=== PATIENT | male | born 1975 | race Caucasian/White ===

== ENCOUNTER 2017-05-01 17:08 | Observation (INO) | payer SELFPAY ==
--- NOTE | 2017-05-01 17:13 | ED Physician Documentation ---
General Adult - HISTORIAN Historian: patient - HPI Stated Complaint: possible alcohol withdrawal Chief Complaint: General Adult Onset: hours Timing: still present Severity: moderate Further Comments: yes (Pt is a 41 yo male from [facility]. He has been drinking alcohol regularly since he was a teenager and has been a daily drinker for the past 2 months, a fifth of hard liquor/day. 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.) - ROS CONST: other (shaky) EYES/ENT: none CVS/RESP: none GI/: nausea MS/SKIN/LYMPH: none NEURO/PSYCH: anxiety - PAST HX Past History: other (alcohol abuse) Other History: none Allergies/Adverse Reactions: Allergies Allergy/AdvReac Type Severity Reaction Status Date / Time No Known Allergies Allergy Verified 05/01/17 17:26 Home Medications: Ambulatory Orders Medication Instructions Recorded NK [NK] 05/01/17 - SOCIAL HX Smoking History: non-smoker Alcohol Use: heavy Drug Use: none - FAMILY HX Family History: No - REVIEWED ASSESSMENTS Nursing Assessment Reviewed: Yes Vitals Reviewed: Yes Progress - Progress Progress: banana bag IVF Ativan 2 mg IV improved admit to OBS, ER physician. General Adult Physical Exam - PHYSICAL EXAM GENERAL APPEARANCE: moderate distress EENT: eye inspection normal, ENT inspection normal, pharynx normal, dry mucous membranes NECK: normal inspection, supple RESPIRATORY: no resp distress, chest non-tender, breath sounds normal CVS: reg rate & rhythm, heart sounds normal ABDOMEN: soft, no organomegaly, normal bowel sounds BACK: normal inspection, no CVA tenderness SKIN: warm/dry, normal color EXTREMITIES: non-tender, normal range of motion, no evidence of injury NEURO: oriented X3, motor nml, sensation nml, other (tremor) Discharge Clincal Impression: Alcohol withdrawal Qualifiers: Complication of substance-induced condition: uncomplicated Qualified Code(s): F10.230 - Alcohol dependence with withdrawal, uncomplicated Condition: Stable Disposition: ADMITTED INPATIENT Decision to Admit: [id number] Decision Time: 19:08
[2017-05-01] MEDS ORDERED: 0.9 % SODIUM CHLORIDE 1,000 ML IV ONE ×2 (17:18→20:16)
[2017-05-01] MEDS ORDERED: FOLIC ACID 5 MG/1 ML ONE (17:19)
[2017-05-01] MEDS ORDERED: MVI, ADULT NO.1 WITH VIT K 10 ML VIAL IV ONE (17:19)
[2017-05-01] MEDS ORDERED: THIAMINE HCL 100 MG/ML 2ML VIAL ONE (17:19)
[2017-05-01] MEDS ORDERED: LORazepam 2 MG/ML VIAL IVP ONE (17:20)
[2017-05-01 17:34] LABS: BASOPHILS % 0.6 (0.0-1.5); EOSINOPHILS % 0.7 % (0.0-6.8); MEAN CORPUSCULAR HEMOGLOBIN 36.6 pg (28.0-34.0); MONOCYTES % 9.8 % (0.0-11.0); NEUTROPHILS # 3.8 # k/uL (1.4-7.7)
[2017-05-01 17:49] LABS: eGFR (African) > 60; eGFR (Non-African) > 60
[2017-05-01] MEDS ORDERED: THIAMINE HCL 100 MG, MVI, ADULT NO.1 WITH VIT K 10 ML, FOLIC ACID 5 MG in 0.9 % SODIUM ... IV SCH ×4 (18:00)
[2017-05-01] MEDS: LORazepam 2 MG/ML VIAL IVP PRN (21:13)
[2017-05-01] MEDS: 0.9 % SODIUM CHLORIDE 1,000 ML IV SCH (21:14)
[2017-05-01 21:19] VITALS: BMI 22.2
[2017-05-02] MEDS ORDERED: 0.9 % SODIUM CHLORIDE 1,000 ML IV ONE (05:53)
[2017-05-02] MEDS ORDERED: LORazepam 2 MG/ML VIAL ONE (05:53)
[2017-05-02] MEDS: LORazepam 2 MG/ML VIAL IVP PRN (05:58)
[2017-05-02] MEDS: 0.9 % SODIUM CHLORIDE 1,000 ML IV SCH (05:58)
[2017-05-02 06:23] VITALS: BP 149/80
--- NOTE | 2017-05-02 07:19 | Inpatient Progress Note ---
Subjective - Required Recertification Statement I anticipate X number of days because-include discharge plan: 1 day (overnight) for alcohol withdrawal - Review of Systems Neurological: Other (Tremor, ETOH withdrawal) Objective - Exam Vitals and I&O: Vital Signs Temp 96.6 F L 05/02/17 06:00 Pulse 74 05/02/17 06:00 Resp 18 05/02/17 06:00 BP 149/80 05/02/17 06:00 Pulse Ox 92 05/02/17 06:00 Intake & Output 05/01/17 05/01/17 05/02/17 11:59 23:59 11:59 Intake Total 1100 Output Total 600 Balance 500 Weight 74.389 kg Intake: IV 1100 Right Antecubital 1100 Output: Urine 600 Other: Voiding Method Urinal General: Alert, Oriented to Person, Oriented to Place, Oriented to Time HEENT: Atraumatic, PERRLA Neck: Supple Lungs: Clear to auscultation, Normal air movement, Speaks full Sentences Cardiovascular: Regular rate, No murmurs Abdomen: Normal bowel sounds, Soft, No tenderness Skin: Normal, Warm Neurological: Normal gait, Normal speech, Other (ETOH withdrawal, tremor) Psych/Mental Status: Mental status NL, Intact Judgment - Results Results: Laboratory Results WBC 6.50 K/ul (4.00-12.00) 05/01/17 17:28 RBC 4.31 M/ul (3.90-5.20) 05/01/17 17:28 Hgb 15.8 g/dL (12.0-18.0) 05/01/17 17:28 Hct 46.5 % (37.0-53.0) 05/01/17 17:28 MCV 108.0 fl (80.0-100.0) H 05/01/17 17:28 MCH 36.6 pg (28.0-34.0) H 05/01/17 17:28 MCHC 33.9 g/dL (30.0-36.0) 05/01/17 17:28 RDW 14.6 % (11.3-14.3) H 05/01/17 17:28 Plt Count 116 K/mm3 (130-400) L 05/01/17 17:28 Neut % (Auto) 58.1 % (39.0-79.0) 05/01/17 17:28 Lymph % (Auto) 28.7 % (16.0-50.0) 05/01/17 17: [place] % (Auto) 9.8 % (0.0-11.0) 05/01/17 17: Eos % (Auto) 0.7 % (0.0-6.8) 05/01/17 17:28 Baso % (Auto) 0.6 (0.0-1.5) 05/01/17 17: Neut # (Auto) 3.8 # k/uL (1.4-7.7) 05/01/17 17: Lymph # (Auto) 1.9 # k/uL (0.6-4.0) 05/01/17: [place] # (Auto) 0.6 # k/uL (0.0-0.9) 05/01/17 17: Eos # (Auto) 0.0 # k/uL (0.0-0.6) 05/01/17 17: Baso # (Auto) 0.0 # k/uL (0.0-0.5) 05/01/17 17: Reactive Lymphs % 2.1 % (0.0-5.0) 05/01/17 17: Reactive Lymphs # 0.1 # k/uL (0.0-0.8) 05/01/17 17:28 Sodium 134 mmol/L (136-145) L 05/01/17 17:30 Potassium 3.6 mmol/L (3.5-5.1) 05/01/17 17:30 Chloride 93 mmol/L (98-107) L 05/01/17 17:30 Carbon Dioxide 28 mmol/L (22-30) 05/01/17 17:30 BUN 10 mg/dL (9-20) 05/01/17 17:30 Creatinine 0.70 mg/dL (0.66-1.25) 05/01/17 17:30 Estimated Creat Clear 144 05/01/17 17:30 Est GFR ( Amer) > 60 (60-) 05/01/17 17:30 Est GFR (Non-Af Amer) > 60 (60-) 05/01/17 17:30 Glucose 131 mg/dL (74-106) H 05/01/17 17:30 Calcium 9.5 mg/dL (8.4-10.2) 05/01/17 17:30 Total Bilirubin 1.6 mg/dL (0.2-1.3) H 05/01/17 17:30 AST 101 U/L (15-46) H 05/01/17 17:30 ALT 51 U/L (13-69) 05/01/17 17:30 Alkaline Phosphatase 62 U/L (38-126) 05/01/17 17:30 Total Protein 8.0 g/dL (6.3-8.2) 05/01/17 17:30 Albumin 4.6 g/dL (3.5-5.0) 05/01/17 17:30 - Procedures Procedures: Pt received Ativan 2 mg IV x 2 overnight for control of tremor due to ETOH with drawal. Pt doing well this am. May be discharged to [facility] with continuation of Ativan today and tomorrow and then taper to d/c. Assessment/Plan - Assessment/Plan (1) Alcohol withdrawal Status: Acute Current Visit: Yes Qualifiers: Complication of substance-induced condition: uncomplicated Qualified Code(s ): F10.230 - Alcohol dependence with withdrawal, uncomplicated
--- NOTE | 2017-05-02 07:27 | Discharge Summary ---
Discharge Summary - Discharge Sumary History of Present Illness: Pt is a 41 yo alcoholic, drinking a fifth of hard liquor per day, who was admitted to [facility] rehab yesterday and had stopped drinking the day before. Pt developed significant tremor due to ETOH withdrawal and was sent to ER. Pt was given a banana bag and ativan 2 mg in ER with much improvement in tremor and was admitted overnight. IVF NS @ 100 cc/hr was continued overnight and pt was given 2 additional doses of ativan 2 mg IV. Pt is doing well this am , and may return to [facility] after breakfast. Ativan 1-2 mg po q4hrs prn may be continued today and tomorrow and then tapered over the next two days Condition at Discharge: Stable Home Medications: Ambulatory Orders Medication Instructions Recorded NK [NK] 05/01/17 Consultations this Visit: None Procedures this Visit: None Allergies/Adverse Reactions: Allergies Allergy/AdvReac Type Severity Reaction Status Date / Time No Known Allergies Allergy Verified 05/01/17 17:26 Patient Problems: Current Active Problems Problem Status Onset Alcohol withdrawal Acute
== END 2017-05-02 09:50 | disposition home or self-care (01) ==
LOC: ED 17:08 → SOUTH 18:30
PROVIDERS: ADMIT Emergency Medicine; ATTEND Emergency Medicine
DX: F10.230 Alcohol dependence with withdrawal, uncomplicated (principal)
CPT/HCPCS: 80053; 80320; 85025; 96360; 96361; 96365; 96376; 99283; 99284; G0378; J2060; J3411; J3490; J7030; 99217; 99218; 99224; G0480; S1016

== ENCOUNTER 2018-03-17 21:56 | Emergency (ER) | payer SELFPAY ==
--- NOTE | 2018-03-17 22:10 | ED Physician Documentation ---
General Adult - HISTORIAN Historian: patient - HPI Stated Complaint: alcohol intoxication Chief Complaint: General Adult Onset: other (he started drinking heavy in August ) Timing: still present, worse Severity: moderate Further Comments: yes (He went to [facility] in Apr and started to drink again in August. He has been drinking up to a gallon a day - vodka. He did drink today and had a 5th of vodka on way to [place]. He denies any pain.) Last known Well Code/Unknown Code: Unknown - ROS CONST: no problems EYES/ENT: none CVS/RESP: none GI/: none MS/SKIN/LYMPH: none NEURO/PSYCH: denies: headache, dizziness - PAST HX Past History: hypertension (does not take meds has not for 2 years ), other (alcoholism ) Surgeries/Procedures: other (chest tube 3 years ago ) Allergies/Adverse Reactions: Allergies Allergy/AdvReac Type Severity Reaction Status Date / Time No Known Allergies Allergy Verified 03/17/18 22:49 Home Medications: Ambulatory Orders Medication Instructions Recorded NK 05/01/17 - SOCIAL HX Smoking History: non-smoker Alcohol Use: heavy - FAMILY HX Family History: No - VITAL SIGNS Vital Signs: Vital Signs Temp Pulse Resp BP Pulse Ox 149/80 05/02/17 06:00 - REVIEWED ASSESSMENTS Nursing Assessment Reviewed: Yes Vitals Reviewed: Yes Progress - Progress Progress: 2345: Discussed case with Nila at [facility] - she states they are on a medical bed hold and she suggests calling [facility]. DG [id number]: Discussed case with [employer] business performance advisor and she states she will discuss admission with aeronautical research engineer return call DG [id number]: discussed case with sisters they are aware and will await word on accepting for transfer DG [id number]: discussed care with Dr Polo and he will accept DG General Adult Physical Exam - PHYSICAL EXAM GENERAL APPEARANCE: no distress EENT: eye inspection normal, no signs of dehydration RESPIRATORY: no resp distress, chest non-tender, breath sounds normal CVS: reg rate & rhythm, heart sounds normal, equal pulses ABDOMEN: soft, no distension SKIN: warm/dry EXTREMITIES: non-tender NEURO: oriented X3, speech/cognition abnml (slurred speech 0010 - speech is more clear. He is asking more alert questions about transfer ) Discharge Clincal Impression: Temporary low platelet count Alcohol withdrawal Qualifiers: Complication of substance-induced condition: with unspecified complication Qualified Code(s): F10.239 - Alcohol dependence with withdrawal, unspecified Referrals: Primary Doctor,No [Primary Care Provider] - 2 Days Condition: Fair Disposition: ADMITTED INPATIENT Decision to Admit: NO Date of Decison to Admit: 03/17/18 Decision Time: 23:57
[2018-03-17] MEDS: THIAMINE HCL 100 MG, MULTIVIT INFUSN,ADULT 1,VIT K 10 ML, FOLIC ACID 5 MG in 0.9 % SODI... IV ONE (22:43)
[2018-03-17 22:55] LABS: eGFR (Non-African) > 60
[2018-03-17 23:01] LABS: BASOPHILS % 1.1 (0.0-1.5); EOSINOPHILS % 1.1 % (0.0-6.8); MEAN CORPUSCULAR HEMOGLOBIN 36.6 pg (28.0-34.0); MONOCYTES % 9.2 % (0.0-11.0); NEUTROPHILS # 1.4 # k/uL (1.4-7.7)
[2018-03-17] MEDS: FOLIC ACID 5 MG/1 ML ONE (23:24)
[2018-03-17] MEDS: 0.9 % SODIUM CHLORIDE 1,000 ML IV ONE (23:24)
[2018-03-17] MEDS: MULTIVIT INFUSN,ADULT 1,VIT K 10 ML VIAL IV ONE (23:24)
[2018-03-17] MEDS: THIAMINE HCL 100 MG/ML 2ML VIAL ONE (23:25)
[2018-03-18] MEDS: THIAMINE HCL 100 MG, MULTIVIT INFUSN,ADULT 1,VIT K 10 ML, FOLIC ACID 5 MG in 0.9 % SODI... IV ONE (00:25)
[2018-03-18] MEDS: MULTIVIT INFUSN,ADULT 1,VIT K 10 ML VIAL IV ONE (00:28)
[2018-03-18] MEDS: 0.9 % SODIUM CHLORIDE 1,000 ML IV ONE (00:29)
[2018-03-18] MEDS: THIAMINE HCL 100 MG/ML 2ML VIAL ONE (00:29)
[2018-03-18] MEDS: LORazepam 2 MG/ML VIAL IVP ONE (00:40)
[2018-03-18 00:53] VITALS: BP 136/88
[2018-03-18 08:09] LABS: APPEARANCE,URINE CLEAR (CLEAR); COLOR,URINE AMBER (YELLOW)
[2018-03-18 08:10] LABS: OCCULT BLOOD,URINE 1+ (NEGATIVE)
[2018-03-18 08:10] LABS: CANNABINOIDS NEGATIVE ng/mL (< 50); METHYLENEDIOXYMETHAMPHETAMINE NEGATIVE ng/mL (<500)
== END 2018-03-18 00:45 | disposition other institution (70) ==
LOC: ED 21:56
DX: F10.239 Alcohol dependence with withdrawal, unspecified (principal); R79.89 Other specified abnormal findings of blood chemistry
CPT/HCPCS: 80053; 80320; 80377; 81002; 85025; 93005; J2060; J3411; J3490; J7030; 96365; 96366; 96375; 99285; G0480; G0481; S1016